=== PATIENT | male | born 1960 | race African-American/Black ===

== ENCOUNTER 2017-07-30 09:32 | Emergency (ER) | payer MEDICARE, OTHER ==
[2017-07-30] MEDS: IV NORMAL SALINE 1000ML BAG 1,000 ML IV (10:46)
[2017-07-30 10:55] LABS: ADD MAN DIFF? NO
[2017-07-30] MEDS: ONDANSETRON PF 4 MG/2 ML VIAL. IV (11:00)
[2017-07-30 11:02] LABS: BASO # 0.1 x10^3/uL (0.0-0.2); BASO % 1 % (0-3); EOS # 0.2 x10^3/uL (0.0-0.7); EOS % 3 % (0-3); HEMATOCRIT 48.2 % (39.0-53.0); HEMOGLOBIN 16.8 g/dL (13.0-17.5); LYMPH # 2.7 x10^3/uL (1.0-4.8); LYMPH % 32 % (24-48); MEAN CORPUSCULAR HEMOGLOBIN 31 pg (25-35); MEAN CORPUSCULAR HGB CONC 35 g/dL (31-37); MEAN CORPUSCULAR VOLUME 90 fL (79-100); MONO # 0.6 x10^3/uL (0.0-1.1); MONO % 8 % (0-9); NEUT # 4.8 x10^3uL (1.8-7.7); NEUT % 57 % (31-73); PLATELET COUNT 343 x10^3/uL (140-400); RED BLOOD COUNT 5.38 x10^6/uL (4.30-5.70); RED CELL DISTRIBUTION WIDTH 14.9 % (11.5-14.5); WHITE BLOOD COUNT 8.4 x10^3/uL (4.0-11.0)
[2017-07-30 11:04] LABS: BILIRUBIN,URINE NEGATIVE (NEG); CLARITY,URINE CLEAR; COLOR,URINE YELLOW; GLUCOSE,URINE NEGATIVE (NEG); NITRITE,URINE NEGATIVE (NEG); PROTEIN,URINE NEGATIVE (NEG-TRACE); UROBILINOGEN,URINE 0.2 mg/dL (0.2 mg/dL)
[2017-07-30 11:16] LABS: BACTERIA,URINE 0 /HPF (0-FEW); RBC,URINE 0 /HPF (0-2); SQUAMOUS EPITHELIAL CELL,UR OCC /LPF; WBC,URINE 0 /HPF (0-4)
[2017-07-30 11:28] LABS: ANION GAP 8 (6-14); BLOOD UREA NITROGEN 9 mg/dL (8-26); BUN/CREATININE RATIO 11 (6-20); CALCIUM 9.8 mg/dL (8.5-10.1); CARBON DIOXIDE 30 mmol/L (21-32); CHLORIDE 102 mmol/L (98-107); CREATININE 0.8 mg/dL (0.7-1.3); GFR 119.7; GLUCOSE 100 mg/dL (70-99); POTASSIUM 4.5 mmol/L (3.5-5.1); SODIUM 140 mmol/L (136-145)
[2017-07-30 11:34] LABS: ALBUMIN 4.2 g/dL (3.4-5.0); ALBUMIN/GLOBULIN RATIO 1.1 (1.0-1.7); ALK PHOS 122 U/L (46-116); ALT (SGPT) 25 U/L (16-63); AST (SGOT) 16 U/L (15-37); LIPASE 120 U/L (73-393); TOTAL BILIRUBIN 0.4 mg/dL (0.2-1.0); TOTAL PROTEIN 8.1 g/dL (6.4-8.2)
[2017-07-30] MEDS ORDERED: CONTRAST GIVEN MC (11:45)
[2017-07-30] MEDS: IOHEXOL 300 MG/ML 100ML VIAL. IV (11:48)
== END 2017-07-30 12:41 | disposition home or self-care (01) ==
LOC: ER 09:32
DX: K40.90 Unilateral inguinal hernia, without obstruction or gangrene, not specified as recurrent (principal); R10.30 Lower abdominal pain, unspecified; R11.2 Nausea with vomiting, unspecified
CPT/HCPCS: 36415; 74177; 80053; 81001; 83690; 85025; 96361; 96374; 99285-25; J2405; J7030; Q9967

== ENCOUNTER 2020-04-26 15:09 | Emergency (ER) | payer OTHER ==
[2017-07-30 10:50] VITALS: BP 146/86
[~2020-04-26 15:09] MED LIST: ACET325T9 PO; MULT-208 PO; SCHIZOPHRENIA MED
[2020-04-26 16:48] LABS: BILIRUBIN,URINE NEGATIVE (NEG); CLARITY,URINE CLEAR; COLOR,URINE YELLOW; NITRITE,URINE NEGATIVE (NEG); PROTEIN,URINE NEGATIVE (NEG-TRACE)
[2020-04-26 16:49] LABS: BASO % 0 % (0-3); EOS # 0.2 x10^3/uL (0.0-0.7); EOS % 2 % (0-3); HEMATOCRIT 44.3 % (39.0-53.0); HEMOGLOBIN 15.1 g/dL (13.0-17.5); LYMPH # 1.6 x10^3/uL (1.0-4.8); LYMPH % 17 % (24-48); MEAN CORPUSCULAR HEMOGLOBIN 31 pg (25-35); MEAN CORPUSCULAR HGB CONC 34 g/dL (31-37); MEAN CORPUSCULAR VOLUME 90 fL (79-100); MONO # 0.8 x10^3/uL (0.0-1.1); MONO % 8 % (0-9); NEUT % 73 % (31-73); PLATELET COUNT 350 x10^3/uL (140-400); RED BLOOD COUNT 4.95 x10^6/uL (4.30-5.70); RED CELL DISTRIBUTION WIDTH 15.7 % (11.5-14.5); WHITE BLOOD COUNT 9.6 x10^3/uL (4.0-11.0)
[2020-04-26 16:57] LABS: AMPHETAMINE/METHAMPHETAMINE NEG (NEG); BARBITURATES NEG (NEG); BENZODIAZEPINES NEG (NEG); CALCIUM 9.5 mg/dL (8.5-10.1); CANNABINOIDS NEG (NEG); COCAINE NEG (NEG); CREATININE 0.8 mg/dL (0.7-1.3); GFR 118.9; METHADONE NEG (NEG); OPIATES NEG (NEG); PHENCYCLIDINE NEG (NEG); POTASSIUM 3.7 mmol/L (3.5-5.1)
[2020-04-26] MEDS ORDERED: IOHEXOL 300 MG/ML 100ML VIAL. IV ONE (17:00)
[2020-04-26] MEDS ORDERED: IOHEXOL 240 MG/ML 50ML VIAL. PO ONE (17:00)
[2020-04-26 17:02] LABS: ALBUMIN 3.4 g/dL (3.4-5.0); ALBUMIN/GLOBULIN RATIO 0.8 (1.0-1.7); TOTAL BILIRUBIN 0.2 mg/dL (0.2-1.0); TOTAL PROTEIN 7.7 g/dL (6.4-8.2)
[2020-04-26] MEDS ORDERED: CONTRAST GIVEN. MC PRN (17:15)
[2020-04-26 17:16] LABS: BACTERIA,URINE 0 /HPF (0-FEW); WBC,URINE OCC /HPF (0-4)
[2020-04-26 17:17] LABS: AMORPHOUS SEDIMENT,UR PRESENT /HPF
--- NOTE | 2020-04-26 18:28 | RAD ---
Exam: CT abdomen/pelvis with intravenous contrast Indication: Right inguinal hernia Comparison: CT abdomen pelvis 07/30/2017 Technique: Helical CT imaging performed of the abdomen and pelvis after the intravenous administratio n of 75 mL Omnipaque 300 intravenous contrast. Sagittal and coronal reformats were obtained. One or more of the following individualized dose reduction techniques were utilized for this examinat ion: 1. Automated exposure control 2. Adjustment of the mA and/or kV according to patient size 3. Use of iterative reconstruction technique. Findings: Lower chest: There is a pleural-based calcification and linear subpleural opacities or pleural thicke jennyfer in the lingula. The heart is normal in size. Liver: Normal. Gallbladder/Biliary Tree: Normal. Pancreas: Normal. Spleen: No splenomegaly. There are calcified splenic granulomas. Adrenal Glands: Normal. Kidneys/Ureters/Bladder: Kidneys are normal in size and enhance symmetrically. No hydronephrosis. The re are subcentimeter hypodensities in the left kidney, too small to characterize. Ureters and bladder are normal. Reproductive Organs: Normal. Stomach, small bowel, and colon: Stomach is normal. There is no small bowel obstruction. The cecum ex tends into a right inguinal hernia however there is no wall thickening or fluid in the hernia sac to suggest complication. The colon is otherwise normal. The appendix is normal. Vasculature: Abdominal aorta is normal in caliber. Lymph Nodes: No lymphadenopathy. Peritoneum and retroperitoneum: There is no free fluid or free air. Bones: No acute osseous abnormality. There is degenerative disc disease in the lumbar spine with smal l disc bulges at multiple levels. Miscellaneous: Slightly increased size of right inguinal hernia containing part of the cecum, as abov e. Impression: 1. Slightly increased size of right inguinal hernia containing part of the cecum. There is no wall t hickening or inflammation to suggest complication. 2. Pleural calcifications and adjacent linear subpleural opacities or pleural thickening in the ling sonny, nonspecific. This was partially seen on 07/30/2017. Electronically signed by: Chelita Saravia MD (04/26/2020 6:26 PM) [id number]
== END 2020-04-26 19:50 | disposition home or self-care (01) ==
LOC: ER 15:09
DX: K40.90 Unilateral inguinal hernia, without obstruction or gangrene, not specified as recurrent (principal); F20.9 Schizophrenia, unspecified
CPT/HCPCS: 36415; 74177; 80053; 80307; 81001; 85025; 99285; Q9966; Q9967

== ENCOUNTER → 2020-05-24 | Outpatient (CLI) | payer OTHER ==
[2017-07-30 10:50] VITALS: BP 146/86
[~2020-05-24] MED LIST changes: +TRIH2TAB3 PO; +[UNRECOGNIZED DRUG - OTHER]
== END ==
LOC: LAB 09:44
PROVIDERS: ATTEND Surgery
DX: Z01.812 Encounter for preprocedural laboratory examination (principal); K40.90 Unilateral inguinal hernia, without obstruction or gangrene, not specified as recurrent; Z20.822 Contact with and (suspected) exposure to COVID-19
CPT/HCPCS: U0003

== ENCOUNTER 2020-05-27 08:10 | Day surgery (SDC) | payer OTHER ==
[~2020-05-27] VITALS: Ht 170.2 cm; Wt 60.0 kg
[~2020-05-27 08:10] MED LIST changes: +ACETAMINOPHEN 500 MG TABLET PO PRN; +BUPIVACAINE-EPI 0.25% 30 ML VIAL KIT. ONE; +DEXAMETHASONE SOD PHOS 4 MG/ML VIAL ONE; +HYDROmorphone 2 MG/ML VIAL IVP PRN; +IV RINGERS,LACTATED 1000ML 1,000 ML IV SCH; +KETOROLAC 30 MG/ML VIAL. ONE; +LIDOCAINE 2% PF 5 ML VIAL. ONE; +MINERAL OIL for SURGERY 10 ML VIAL. MC ONE; +MORPHINE SULFATE 2 MG/ML VIAL. IVP PRN; +ONDANSETRON PF 4 MG/2 ML VIAL. ONE; +PROCHLORPERAZINE 10 MG/2 ML VIAL. IVP PRN; +PROPOFOL 10 MG/ML (20ML) VIAL. IV ONE; +ROCURONIUM 50 MG/5 ML VIAL. ONE; +SEVOFLURANE 61 TO 120 MINUTES. IH ONE; +ceFAZolin SODIUM IV Push 1 GM VIAL. IVP PRN; +fentaNYL PF VIAL 100 MCG/2 ML VIAL IVP PRN; +fentaNYL PF VIAL 100 MCG/2 ML VIAL ONE
[2020-05-27] MEDS ORDERED: NEOSTIGMINE METHYLSULFATE 5 MG/5 ML SYRINGE. ONE (09:40)
[2020-05-27] MEDS ORDERED: GLYCOPYRROLATE 1 MG/5 ML VIAL. ONE (09:40)
--- NOTE | 2020-05-27 09:53 | PDOC4 ---
Operative Note Operative Note Date: May 272020 at 951 Preoperative diagnosis: Right inguinal hernia Postoperative diagnosis: Same Procedure: Robotic assisted laparoscopic right inguinal hernia repair with mesh Surgeon: [place] Specimen: None Dictation: Patient is a 59-year-old male with a right inguinal hernia. The procedure of robotic assisted laparoscopic right inguinal hernia repair with mesh was explained to the patient detail risk benefits were also discussed inclu ding bleeding infection injury to intra-abdominal contents possible necessitating further open operations alternatives to this procedure also discussed with the patient who seemed to understand and gave both verbal and written consent to have the procedure performed. Patient was taken to the operating room placed in the supine position general anesthesia was initiated once patient was sleeping intubated he is placed in low lithotomy positioning and his abdomen was prepped and draped usual sterile fashion using ChloraPrep. Area just above the umbilicus was injected with quarter percent Marcaine with epinephrine incision was made with 11 blade scalpel and a varies needle was placed within the abdomen creating pneumoperitoneum once this was complete 8 mm ventral port was placed in the da Darian camera was placed within the abdomen which was inspected as noted patient to have a large direct right inguinal hernia. 8 mm ventral port was placed in the right midabdomen and an 8 mm da Darian port was placed in the left midabdomen the da Darian robot was brought and docked all port sites surgeon went to the robotic console using a grasper and E ndo Valerio scissors the peritoneum over the right groin area was incised the peritoneum was propagated inferiorly reducing the hernia sac. A large 3D max Bard mesh for the right side was placed over the hernia defect using 3-0 Vicryl the the mesh was tacked to the Soham's ligament and superiorly to the muscular wall. The peritoneum was then closed over the mesh with a running 2 OV lock absorbable suture. Sutures were removed from the abdomen the da Darian robot was undocked from all port sites pneumoperitoneum was reduced all ports were removed the port sites were all closed with 4 subcuticular Monocryl Mastisol Steri- Strips and island dressings were applied. Patient was awakened and extubated in the operating room taken to recovery in stable condition all sponge instrument needle counts listed as correct estimated blood loss 5 mL. NICA MASSEY MD May 27, 2020 09:53
--- NOTE | 2020-05-27 09:55 | DISCH ---
DISCHARGE INSTRUCTIONS Condition on Discharge Condition on Discharge: Stable Activity After Discharge Activity Instructions for Disc: Avoid exertion Other activity instructions: No lifting more than 20 pounds for 2 weeks Diet after Discharge Diet after Discharge: Regular Wound Incision Care Other wound/incision instructi: May shower in 24 hours Contacting the DRGladys after DC Call your doctor for: If your condition worsens Follow-Up Follow up with: Dr. Massey in 2 weeks NICA MASSEY MD May 27, 2020 09:55
[2020-05-27] MEDS ORDERED: fentaNYL PF VIAL 100 MCG/2 ML VIAL ONE (10:08)
[2020-05-27] MEDS: fentaNYL PF VIAL 100 MCG/2 ML VIAL IVP PRN ×2 (10:10→10:16)
[2020-05-27] MEDS ORDERED: OXYC-325 PO (10:22)
[2020-05-27] MEDS ORDERED: oxyCODONE/APAP 5/325 1 TAB TABLET PO ONE ×2 (10:30)
[2020-05-27 12:30] VITALS: BP 160/84
== END 2020-05-27 12:35 | disposition home or self-care (01) ==
LOC: SURG 08:10
PROVIDERS: ATTEND Surgery
DX: K40.90 Unilateral inguinal hernia, without obstruction or gangrene, not specified as recurrent (principal); Z98.890 Other specified postprocedural states; Z79.899 Other long term (current) drug therapy
CPT/HCPCS: 49650; A4364; A4930; A6219; C1781; J0690; J1100; J1885; J2405; J2704; J2710; J3010; J3490; S2900; A4657

== ENCOUNTER 2020-09-02 13:39 | Emergency (ER) | payer OTHER ==
[~2020-09-02] VITALS: Ht 170.2 cm; Wt 60.0 kg
[~2020-09-02 13:39] MED LIST changes: -ACETAMINOPHEN 500 MG TABLET PO PRN; -BUPIVACAINE-EPI 0.25% 30 ML VIAL KIT. ONE; -DEXAMETHASONE SOD PHOS 4 MG/ML VIAL ONE; -HYDROmorphone 2 MG/ML VIAL IVP PRN; -IV RINGERS,LACTATED 1000ML 1,000 ML IV SCH; -KETOROLAC 30 MG/ML VIAL. ONE; -LIDOCAINE 2% PF 5 ML VIAL. ONE; -MINERAL OIL for SURGERY 10 ML VIAL. MC ONE; -MORPHINE SULFATE 2 MG/ML VIAL. IVP PRN; -ONDANSETRON PF 4 MG/2 ML VIAL. ONE; +OXYC-325 PO; -PROCHLORPERAZINE 10 MG/2 ML VIAL. IVP PRN; -PROPOFOL 10 MG/ML (20ML) VIAL. IV ONE; -ROCURONIUM 50 MG/5 ML VIAL. ONE; -SEVOFLURANE 61 TO 120 MINUTES. IH ONE; -ceFAZolin SODIUM IV Push 1 GM VIAL. IVP PRN; -fentaNYL PF VIAL 100 MCG/2 ML VIAL IVP PRN; -fentaNYL PF VIAL 100 MCG/2 ML VIAL ONE
[2020-09-02 15:38] VITALS: BP 137/81
[2020-09-02] MEDS ORDERED: CLOB15CR TP (16:14)
--- NOTE | 2020-09-02 16:14 | ED.ADGEN ---
Past Medical History Past Medical History: No Pertinent History Past Surgical History: Other Additional Past Surgical Histo: HERNIA SURGERY Smoking Status: Never Smoker Alcohol Use: None Drug Use: None General Adult EDM: Chief Complaint: SKIN RASH/ABSCESS HPI: HPI: Patient is a 60 year old AA male who presents the emergency department with complaints of a dark tarry rash to all 4 of his extremities since April. Patient reports his primary care doctor, Dr. Conrad has prescribed him both oral and topical antifungals with no improvement in his rash. Patient states that the rash is very itchy. He denies any drainage, warmth, or bleeding from the rash. Patient denies any fever, cough, sore throat, abdominal pain, nausea, vomiting, diarrhea, shortness of breath, wheezing, chest pain, body aches, or fatigue. He currently denies any pain. Review of Systems: Review of Systems: Complete ROS is negative unless otherwise noted in HPI. Allergies: Allergies: Allergies Coded Allergies Type Severity Reaction Last Updated Verified No Known Allergies Allergy Unknown 09/28/14 Yes Physical Exam: PE: See Above Constitutional: Well developed, well nourished, no acute distress, non-toxic appearance. [] HENT: Normocephalic, atraumatic, bilateral external ears normal, nose normal. [] Eyes: PERRLA, EOMI, conjunctiva normal, no discharge. [] Neck: Normal range of motion, no stridor. [] Cardiovascular:Heart rate regular rhythm Lungs & Thorax: Respirations even and unlabored, no retractions, no respiratory distress Skin: Warm, dry, no erythema; generally dry skin noted, patches of scaly darkened skin concerning for atopic dermatitis to extremities x4 Extremities: No cyanosis, ROM intact, no edema. [] Neurologic: Alert and oriented X 3, normal motor, normal sensory, no focal deficits noted. [] Psychologic: Affect normal, judgement normal, mood normal. [] Current Patient Data: Vital Signs: Vital Signs Date Time Temp Pulse Resp B/P (MAP) Pulse Ox O2 Delivery O2 Flow Rate FiO2 09/02/20 15:38 98.1 67 18 137/81 (99) Room Air 98.1 EKG: EKG: [] Heart Score: C/O Chest Pain: No Risk Scores: Score 0 - 3: 2.5% MACE over next 6 weeks - Discharge Home Score 4 - 6: 20.3% MACE over next 6 weeks - Admit for Clinical Observation Score 7 - 10: 72.7% MACE over next 6 weeks - Early Invasive Strategies Radiology/Procedures: Radiology/Procedures: [] Course & Med Decision Making: Course & Med Decision Making Pertinent Labs and Imaging studies reviewed. (See chart for details) [] Dragon Disclaimer: Dragon Disclaimer: This electronic medical record was generated, in whole or in part, using a voice recognition dictation system. Departure Departure Impression: Primary Impression: Atopic dermatitis Disposition: HOME / SELF CARE / HOMELESS Condition: STABLE Referrals: YENNIFER CONRAD MD (PCP) Patient Instructions: Eczema Additional Instructions: Fill prescription(s) and use as directed. Apply moisturizing cream such as Cetaphil cream to your skin twice daily and as needed. Try to limit showers to every other day, take lukewarm/cool showers, and lightly towel dry as instructed. Follow-up with your primary care doctor or a audiovisual tech for repeat evaluation in the next week. Return to the ER if symptoms worsen or fever develops. Dr. Elizabeth Mart (Dermatology) [address] [place] [id number] Scripts Clobetasol Propionate (CLOBETASOL PROPIONATE) 15 Gm Cream..g. 1 DARIAN TP BID, #30 GM 0 Refills Prov: VICK SERRANO APRN 09/02/20 Attending Signature Attending Signature I have reviewed the PA/DIRECTOR OF PEOPLE's note and plan of care. I was available for consultation as needed during the patient's visit in the emergency department. I agree with the clinical impression, plan, and disposition. Problem Qualifiers Primary Impression: Atopic dermatitis Atopic dermatitis type: unspecified Qualified Codes: L20.9 - Atopic dermatitis, unspecified VICK SERRANO APRN Sep 02, 2020 16:14 [place] GABRIEL DO Sep 05, 2020 13:03
== END 2020-09-02 16:59 | disposition home or self-care (01) ==
LOC: ER 13:39
DX: L20.9 Atopic dermatitis, unspecified (principal)
CPT/HCPCS: 99283

== ENCOUNTER 2020-10-28 15:22 | Observation (INO) | payer OTHER ==
[~2020-10-28] VITALS: Ht 170.2 cm; Wt 48.2 kg
[~2020-10-28 15:22] MED LIST changes: +CLOB15CR TP
[2020-10-28 15:50] LABS: BASO # 0.1 x10^3/uL (0.0-0.2); BASO % 1 % (0-3); EOS # 0.2 x10^3/uL (0.0-0.7); EOS % 3 % (0-3); HEMATOCRIT 44.6 % (39.0-53.0); HEMOGLOBIN 15.3 g/dL (13.0-17.5); LYMPH # 1.7 x10^3/uL (1.0-4.8); LYMPH % 31 % (24-48); MEAN CORPUSCULAR HEMOGLOBIN 30 pg (25-35); MEAN CORPUSCULAR HGB CONC 34 g/dL (31-37); MEAN CORPUSCULAR VOLUME 87 fL (79-100); MONO # 0.6 x10^3/uL (0.0-1.1); MONO % 12 % (0-9); NEUT % 53 % (31-73); PLATELET COUNT 300 x10^3/uL (140-400); RED BLOOD COUNT 5.11 x10^6/uL (4.30-5.70); RED CELL DISTRIBUTION WIDTH 16.2 % (11.5-14.5); WHITE BLOOD COUNT 5.6 x10^3/uL (4.0-11.0)
--- NOTE | 2020-10-28 15:59 | RAD ---
EXAM: CT Head without IV contrast CLINICAL HISTORY: Reason: SLURRED SPEECH, last time known normal was 6 pm on 10/27/20 / [facility]. Instructi ons: / History: COMPARISON: None. TECHNIQUE: Routine CT of the head without contrast. PQRS compliance statement - One or more of the following individualized dose reduction techniques wer e utilized for this study: 1. Automated exposure control 2. Adjustment of the mA and/or kV according to patient size 3. Use of iterative reconstruction technique FINDINGS: There is no evidence of hemorrhage, mass or extra-axial fluid collection. Vazquez-white differentiation is maintained with no evidence of edema. There is no mass effect or shift of the intracranial structures. The ventricles, basilar cisterns and cortical sulci are normal in size and configuration for the pam ents stated age. The cerebellum and brainstem are unremarkable. The calvarium demonstrates no evidence of fracture or focal lesion. There is normal aeration of the visualized paranasal sinuses and mastoid air cells. The visualized portions of the orbits are normal. Atherosclerotic calcifications of the intracranial internal carotid and vertebral arteries is seen. IMPRESSION: No evidence for acute intracranial process. Specifically no evidence for acute intracranial hemorrhag e. White matter changes, likely chronic small vessel disease. Findings discussed with Dr. Iniguez at 10/28/2020 3:56 PM. FOR INTERNAL CODING PURPOSES RESULT CODE: (C) Electronically signed by: Paulo Dhillon MD (10/28/2020 3:57 PM) [id number]
[2020-10-28 16:00] LABS: CALCIUM 9.3 mg/dL (8.5-10.1); CREATININE 0.9 mg/dL (0.7-1.3); GFR 103.5; POTASSIUM 4.4 mmol/L (3.5-5.1)
--- NOTE | 2020-10-28 16:03 | PHYS DOC ---
Past Medical History Past Medical History: Schizophrenia Past Surgical History: Other Additional Past Surgical Histo: hernia repait Smoking Status: Current Every Day Smoker Alcohol Use: None Drug Use: None General Adult EDM: Chief Complaint: SLURRED SPEECH HPI: HPI: Patient is a 60-year-old male who was brought here by his caregiver for concern of slurred speech. Last time they talked with him and his speech was normal was at 6 PM yesterday. Patient has history of schizophrenia, he is on multiple psych medications. Patient denies any headache, no nausea vomiting, no chest pain, no cough, no fever. Patient denies any numbness or weakness anywhere. Patient said he felt like the medication makes him talked slurred. Review of Systems: Review of Systems: Constitutional: Denies fever or chills. [] Eyes: Denies change in visual acuity. [] HENT: Denies nasal congestion or sore throat. [] Respiratory: Denies cough or shortness of breath. [] Cardiovascular: Denies chest pain or edema. [] GI: Denies abdominal pain, nausea, vomiting, bloody stools or diarrhea. [] : Denies dysuria. [] Musculoskeletal: Denies back pain or joint pain. [] Integument: Denies rash. [] Neurologic: Denies headache, focal weakness or sensory changes. Positive for slurred speech Endocrine: Denies polyuria or polydipsia. [] Lymphatic: Denies swollen glands. [] Psychiatric: Denies depression or anxiety. [] Heart Score: C/O Chest Pain: N/A Risk Factors: Risk Factors: DM, Current or recent (<one month) smoker, HTN, HLP, family history of CAD, obesity. Risk Scores: Score 0 - 3: 2.5% MACE over next 6 weeks - Discharge Home Score 4 - 6: 20.3% MACE over next 6 weeks - Admit for Clinical Observation Score 7 - 10: 72.7% MACE over next 6 weeks - Early Invasive Strategies Allergies: Allergies: Allergies Coded Allergies Type Severity Reaction Last Updated Verified No Known Allergies Allergy Unknown 10/28/20 Yes Physical Exam: PE: Constitutional: Well developed, well nourished, no acute distress, non-toxic appearance. [] HENT: Normocephalic, atraumatic, bilateral external ears normal, oropharynx moist, no oral exudates, nose normal. [] Eyes: PERRLA, EOMI, conjunctiva normal, no discharge. [] Neck: Normal range of motion, no tenderness, supple, no stridor. [] Cardiovascular:Heart rate regular rhythm, no murmur [] Lungs & Thorax: Bilateral breath sounds clear to auscultation [] Abdomen: Bowel sounds normal, soft, no tenderness, no masses, no pulsatile masses. [] Skin: Warm, dry, no erythema, no rash. [] Back: No tenderness, no CVA tenderness. [] Extremities: No tenderness, no cyanosis, no clubbing, ROM intact, no edema. [] Neurologic: Alert and oriented X 3, normal motor function, normal sensory function, no focal deficits noted. [] Psychologic: Affect normal, judgement normal, mood normal. [] Current Patient Data: Labs: Laboratory Tests Test 10/28/20 15:38 10/28/20 15:43 Glucose (Fingerstick) 97 mg/dL (70-99) White Blood Count 5.6 x10^3/uL (4.0-11.0) Red Blood Count 5.11 x10^6/uL (4.30-5.70) Hemoglobin 15.3 g/dL (13.0-17.5) Hematocrit 44.6 % (39.0-53.0) Mean Corpuscular Volume 87 fL (79-100) Mean Corpuscular Hemoglobin 30 pg (25-35) Mean Corpuscular Hemoglobin Concent 34 g/dL (31-37) Red Cell Distribution Width 16.2 % (11.5-14.5) H Platelet Count 300 x10^3/uL (140-400) Neutrophils (%) (Auto) 53 % (31-73) Lymphocytes (%) (Auto) 31 % (24-48) Monocytes (%) (Auto) 12 % (0-9) H Eosinophils (%) (Auto) 3 % (0-3) Basophils (%) (Auto) 1 % (0-3) Neutrophils # (Auto) 3.0 x10^3/uL (1.8-7.7) Lymphocytes # (Auto) 1.7 x10^3/uL (1.0-4.8) Monocytes # (Auto) 0.6 x10^3/uL (0.0-1.1) Eosinophils # (Auto) 0.2 x10^3/uL (0.0-0.7) Basophils # (Auto) 0.1 x10^3/uL (0.0-0.2) Platelet Estimate Pending Sodium Level 135 mmol/L (136-145) L Potassium Level 4.4 mmol/L (3.5-5.1) Chloride Level 101 mmol/L (98-107) Carbon Dioxide Level 27 mmol/L (21-32) Anion Gap 7 (6-14) Blood Urea Nitrogen 9 mg/dL (8-26) Creatinine 0.9 mg/dL (0.7-1.3) Estimated GFR (Cockcroft-Gault) 103.5 BUN/Creatinine Ratio 10 (6-20) Glucose Level 93 mg/dL (70-99) Calcium Level 9.3 mg/dL (8.5-10.1) Magnesium Level Pending Total Bilirubin Pending Aspartate Amino Transferase (AST) Pending Alanine Aminotransferase (ALT) Pending Alkaline Phosphatase Pending Total Protein Pending Albumin Pending Albumin/Globulin Ratio Pending Laboratory Tests 10/28/20 15:43 Laboratory Tests 10/28/20 15:43 Vital Signs: Vital Signs Date Time Temp Pulse Resp B/P (MAP) Pulse Ox O2 Delivery O2 Flow Rate FiO2 10/28/20 15:33 98.5 77 171/80 100 98.5 EKG: EKG: EKG was done at 1601, heart rate 64 bpm, sinus rhythm, no ST segment elevation. Normal EKG. Radiology/Procedures: Radiology/Procedures: [][facility] [address] [place], [place] [id number] IMAGING REPORT Signed PATIENT: MILO RICHARDS MACCOUNT: [id number] : 1960 LOCATION: ER AGE: 60 SEX: M EXAM STATUS: PRE ER ORD. PHYSICIAN: AURORA SPENCE DO REASON: SLURRED SPEECH, last time known normal was 6 pm on 10/27/20 PROCEDURE: CT CODE STROKE HEAD WO EXAM: CT Head without IV contrast CLINICAL HISTORY: Reason: SLURRED SPEECH, last time known normal was 6 pm on 10/27/20 / [facility]. Instructions: / History: COMPARISON: None. TECHNIQUE: Routine CT of the head without contrast. PQRS compliance statement - One or more of the following individualized dose reduction techniques were utilized for this study: 1. Automated exposure control 2. Adjustment of the mA and/or kV according to patient size 3. Use of iterative reconstruction technique FINDINGS: There is no evidence of hemorrhage, mass or extra-axial fluid collection. Vazquez-white differentiation is maintained with no evidence of edema. There is no mass effect or shift of the intracranial structures. The ventricles, basilar cisterns and cortical sulci are normal in size and configuration for the patients stated age. The cerebellum and brainstem are unremarkable. The calvarium demonstrates no evidence of fracture or focal lesion. There is normal aeration of the visualized paranasal sinuses and mastoid air cells. The visualized portions of the orbits are normal. Atherosclerotic calcifications of the intracranial internal carotid and vertebral arteries is seen. IMPRESSION: No evidence for acute intracranial process. Specifically no evidence for acute intracranial hemorrhage. White matter changes, likely chronic small vessel disease. Findings discussed with Dr. Spence at 10/28/2020 3:56 PM. FOR INTERNAL CODING PURPOSES RESULT CODE: (C) Electronically signed by: Paulo Foley MD (10/28/2020 3:57 PM) [id number] DICTATED and SIGNED BY: PAULO FOLEY MD DATE: 10/28/20 [id number] 0 Course & Med Decision Making: Course & Med Decision Making Pertinent Labs and Imaging studies reviewed. (See chart for details) Patient is a 60-year-old male who was brought here by his caregiver for concern of slurred speech. Last time they talked with him and his speech was normal was at 6 PM yesterday. Patient has schizophrenia, he is on several medications for it. His NIH stroke scale is 1 due to slurred speech. CT scan head is normal. Discussed with the neurologist on-call Dr. Carmine Villaseñor at 4 PM who suspect that patient has some form of dystonic reaction from the medication. Recommended no need for CTA head and neck, no IV TPA because of the time, recommended to admit the patient to the hospital for MRI of his brain. Discussed with patient's PCP , Dr. Conrad who agreed to admit patient. Tiffany Disclaimer: Tiffany Disclaimer: This electronic medical record was generated, in whole or in part, using a voice recognition dictation system. Departure Departure Impression: Primary Impression: Slurred speech Disposition: ADMITTED INPATIENT Admitting Physician: Niecy Conrad Condition: STABLE Referrals: NIECY CONRAD MD (PCP) AURORA SPENCE DO Oct 28, 2020 16:03
[2020-10-28 16:04] LABS: PROTHROMBIN TIME PATIENT 12.5 SEC (11.7-14.0)
[2020-10-28 16:06] LABS: ALBUMIN 3.7 g/dL (3.4-5.0); ALBUMIN/GLOBULIN RATIO 0.9 (1.0-1.7); MAGNESIUM 1.9 mg/dL (1.8-2.4); TOTAL BILIRUBIN 0.4 mg/dL (0.2-1.0); TOTAL PROTEIN 7.6 g/dL (6.4-8.2)
[2020-10-28 16:15] LABS: % BASOS 2 % (0-3); % EOS 4 % (0-5); % LYMPHS 29 % (24-48); % MONOS 12 % (0-10); % SEGS 53 % (35-66); PLT ESTIMATE ADEQUATE (ADEQUATE)
[2020-10-28] MEDS ORDERED: BENZTROPINE MESYLATE 2 MG/2 ML VIAL. IM STA (16:39)
[2020-10-28 19:08] LABS: BARBITURATES NEG (NEG); BENZODIAZEPINES NEG (NEG); CANNABINOIDS NEG (NEG); COCAINE NEG (NEG); METHADONE NEG (NEG); OPIATES NEG (NEG); PHENCYCLIDINE NEG (NEG)
[2020-10-28 19:20] LABS: AMPHETAMINE/METHAMPHETAMINE NEG (NEG)
--- NOTE | 2020-10-28 19:47 | EKG ---
[facility] [address] [place] [address] Test Date: 2020-10-28 Test Time: 15:59:33 Pat Name: MILO RICHARDS Department: Room: Gender: M Certified Real Estate Appraiser: : 1960 Requested By: AURORA SPENCE Order Number: [id number] Reading MD: Measurements Intervals [place] Rate: 64 P: 31 MT: 142 QRS: 63 QRSD: 80 T: 41 QT: 398 QTc: 415 Interpretive Statements SINUS RHYTHM NORMAL ECG RI6.02 No previous ECG available for comparison
--- NOTE | 2020-10-28 23:07 | RAD ---
AP chest x-ray HISTORY: Tobacco smoker, COPD FINDINGS: Heart size normal. Mediastinal silhouette is normal. Elongated coarse calcifications across the left perihilar lung and upper lobe likely represent calcified pleural plaques. No pneumothorax. No pleural effusions. At the right medial upper lobe apex there is a 2 cm somewhat linear scarlike de nsity. The bones are unremarkable. IMPRESSION: 1. No acute process. 2. Coarse calcifications across the left chest likely represent calcified pleural plaques and raises the possibility of asbestos related pleural disease. 3. 2 cm linear scarlike density at the right upper lobe apex. Further assessment with outpatient CT c hest imaging is advised. Electronically signed by: Tommie Yañez MD (10/28/2020 11:04 PM) [facility]
[2020-10-29 00:10] VITALS: BP 157/77
[2020-10-29 03:46] VITALS: BP 141/80
[2020-10-29 04:58] LABS: BASO # 0.1 x10^3/uL (0.0-0.2); BASO % 2 % (0-3); EOS # 0.1 x10^3/uL (0.0-0.7); EOS % 2 % (0-3); HEMATOCRIT 46.7 % (39.0-53.0); HEMOGLOBIN 16.1 g/dL (13.0-17.5); LYMPH # 1.6 x10^3/uL (1.0-4.8); LYMPH % 27 % (24-48); MEAN CORPUSCULAR HEMOGLOBIN 30 pg (25-35); MEAN CORPUSCULAR HGB CONC 35 g/dL (31-37); MEAN CORPUSCULAR VOLUME 88 fL (79-100); MONO # 0.6 x10^3/uL (0.0-1.1); MONO % 11 % (0-9); NEUT # 3.3 x10^3/uL (1.8-7.7); NEUT % 58 % (31-73); PLATELET COUNT 311 x10^3/uL (140-400); RED BLOOD COUNT 5.33 x10^6/uL (4.30-5.70); RED CELL DISTRIBUTION WIDTH 16.2 % (11.5-14.5); WHITE BLOOD COUNT 5.8 x10^3/uL (4.0-11.0)
[2020-10-29 05:24] LABS: CALCIUM 9.7 mg/dL (8.5-10.1); CREATININE 0.8 mg/dL (0.7-1.3); GFR 118.5; POTASSIUM 4.2 mmol/L (3.5-5.1)
[2020-10-29 06:44] VITALS: BP 141/59
--- NOTE | 2020-10-29 08:40 | PDOC2 ---
NEUROLOGY CONSULT Date of Service DOS: DATE: 10/29/20 TIME: 08:32 Reason for Consult Reason for Consult: Dysarthria Referring Physician Referring Physician: Dr. James Source Source: Chart review, Patient History of Present Illness History of Present Illness The patient is a 60-year-old right-handed male who has had dysarthria for the past week. Last known normal was 6 PM on 10/27. He has schizophrenia and is on multiple psychiatric medications. He describes his words being drawn out and difficult to get out. He denies diplopia, dysphagia, numbness, or weakness. He has never had a stroke, seizure, or head injury. Patient and family believe that the psychotropic medication is causing the dysarthria. Past Medical History GI: Other (Colonic polyps) Psych: Anxiety, Schizophrenia ENT: Other (Scar on right cornea) Renal/: Other (Urinary urgency) Past Surgical History Past Surgical History: Hernia Repair (Right inguinal), Other (Knee arthroscopy) Family History Family History: No pertinent hx Social History Social History Single, occasional cigarettes, no alcohol or street drugs, disabled Current Medications Current Medications Current Medications Benztropine Mesylate (Cogentin) 2 mg 1X STAT IM Last administered on 10/28/20at 16:50; Start 10/28/20 at 16:39; Stop 10/28/20 at 16:41; Status DC Active Scripts Active Clobetasol Propionate 15 Gm Cream..g. 1 Lit TP BID Reported Percocet 5-325 mg Tablet (Oxycodone HCl/Acetaminophen) 1 Each Tablet 1-2 Tab PO Q4-6HRS PRN MDD 2 Tablet(s) 5 Days [Prolixen] 1 UD Trihexyphenidyl Hcl 2 Mg Tablet 2 Mg PO BID Multi-Day Vitamins (Multivitamin) 1 Each Tablet 1 Tab PO DAILY Tylenol (Acetaminophen) 325 Mg Tablet 1 Tab PO DAILY Allergies Allergies: Coded Allergies: No Known Allergies (Verified Allergy, Unknown, 10/28/20) ROS Review of System Negative for fever, chills, weight loss, shortness of breath, chest pain, indigestion, hematochezia, melena, and dysuria. Full 14-point review of systems is negative. Physical Exam Physical Examination General: Well-developed, well-nourished black male in no acute distress HEENT: Normocephalic andatraumatic. Temporal arteriespulsatile and nontender. Neck: Supple without bruit, no meningismus Musculoskeletal: Stability:see neurologic. Gait exam:see neurologic. Tone:see neurologic.Strength:see neurologic. Neurological: Mental Status:orientation, memory, attention span/concentration, language, fund of knowledge: 1 day off on the date, denies delusions or hallucinations. He has at least eight watches or bracelets on his wrists. Cranial Nerves:Pupils equal and reactive to light, extraocular movements areintact, visual long are full to confrontation. Facial sensation is normal. There is no facial asymmetry. Vestibulo-ocular reflex is intact. Palate elevates and tongue protrudes in midline. All other cranial related problems are negative except as mentioned before.Reflexes:1+ and symmetric with flexor plantar responses. Motor:4/5 strength with normal tone and bulk. Coordination:Finger-nose finger and elpr-rh-rkft testing are normal. Rapid alternating movements and fine finger movements are intact. Slight coarse resting tremor in both hands. Gait:A little unsteady. Sensory:Normal pinprick, vibration, light touch, proprioception. Vitals VITALS Vital Signs Date Time Temp Pulse Resp B/P (MAP) Pulse Ox O2 Delivery O2 Flow Rate FiO2 10/29/20 06:44 97.9 54 16 141/59 (86) 99 Room Air 97.9 Labs Labs Laboratory Tests Test 10/28/20 15:38 10/28/20 15:43 10/28/20 18:51 10/28/20 18:56 Glucose (Fingerstick) 97 mg/dL (70-99) White Blood Count 5.6 x10^3/uL (4.0-11.0) Red Blood Count 5.11 x10^6/uL (4.30-5.70) Hemoglobin 15.3 g/dL (13.0-17.5) Hematocrit 44.6 % (39.0-53.0) Mean Corpuscular Volume 87 fL (79-100) Mean Corpuscular Hemoglobin 30 pg (25-35) Mean Corpuscular Hemoglobin Concent 34 g/dL (31-37) Red Cell Distribution Width 16.2 % (11.5-14.5) Platelet Count 300 x10^3/uL (140-400) Neutrophils (%) (Auto) 53 % (31-73) Lymphocytes (%) (Auto) 31 % (24-48) Monocytes (%) (Auto) 12 % (0-9) Eosinophils (%) (Auto) 3 % (0-3) Basophils (%) (Auto) 1 % (0-3) Neutrophils # (Auto) 3.0 x10^3/uL (1.8-7.7) Lymphocytes # (Auto) 1.7 x10^3/uL (1.0-4.8) Monocytes # (Auto) 0.6 x10^3/uL (0.0-1.1) Eosinophils # (Auto) 0.2 x10^3/uL (0.0-0.7) Basophils # (Auto) 0.1 x10^3/uL (0.0-0.2) Segmented Neutrophils % 53 % (35-66) Lymphocytes % 29 % (24-48) Monocytes % 12 % (0-10) Eosinophils % 4 % (0-5) Basophils % 2 % (0-3) Platelet Estimate Adequate (ADEQUATE) Prothrombin Time 12.5 SEC (11.7-14.0) Prothromb Time International Ratio 0.9 (0.8-1.1) Activated Partial Thromboplast Time 33 SEC (24-38) Sodium Level 135 mmol/L (136-145) Potassium Level 4.4 mmol/L (3.5-5.1) Chloride Level 101 mmol/L (98-107) Carbon Dioxide Level 27 mmol/L (21-32) Anion Gap 7 (6-14) Blood Urea Nitrogen 9 mg/dL (8-26) Creatinine 0.9 mg/dL (0.7-1.3) Estimated GFR (Cockcroft-Gault) 103.5 BUN/Creatinine Ratio 10 (6-20) Glucose Level 93 mg/dL (70-99) Calcium Level 9.3 mg/dL (8.5-10.1) Magnesium Level 1.9 mg/dL (1.8-2.4) Total Bilirubin 0.4 mg/dL (0.2-1.0) Aspartate Amino Transf (AST/SGOT) 20 U/L (15-37) Alanine Aminotransferase (ALT/SGPT) 24 U/L (16-63) Alkaline Phosphatase 99 U/L (46-116) Troponin I Quantitative < 0.017 ng/mL (0.000-0.055) Total Protein 7.6 g/dL (6.4-8.2) Albumin 3.7 g/dL (3.4-5.0) Albumin/Globulin Ratio 0.9 (1.0-1.7) Urine Opiates Screen Neg (NEG) Urine Methadone Screen Neg (NEG) Urine Barbiturates Neg (NEG) Urine Phencyclidine Screen Neg (NEG) Urine Amphetamine/Methamphetamine Neg (NEG) Urine Benzodiazepines Screen Neg (NEG) Urine Cocaine Screen Neg (NEG) Urine Cannabinoids Screen Neg (NEG) Urine Ethyl Alcohol Neg (NEG) SARS-CoV-2 Antigen (Rapid) Negative (NEGATIVE) Test 10/29/20 04:00 White Blood Count 5.8 x10^3/uL (4.0-11.0) Red Blood Count 5.33 x10^6/uL (4.30-5.70) Hemoglobin 16.1 g/dL (13.0-17.5) Hematocrit 46.7 % (39.0-53.0) Mean Corpuscular Volume 88 fL (79-100) Mean Corpuscular Hemoglobin 30 pg (25-35) Mean Corpuscular Hemoglobin Concent 35 g/dL (31-37) Red Cell Distribution Width 16.2 % (11.5-14.5) Platelet Count 311 x10^3/uL (140-400) Neutrophils (%) (Auto) 58 % (31-73) Lymphocytes (%) (Auto) 27 % (24-48) Monocytes (%) (Auto) 11 % (0-9) Eosinophils (%) (Auto) 2 % (0-3) Basophils (%) (Auto) 2 % (0-3) Neutrophils # (Auto) 3.3 x10^3/uL (1.8-7.7) Lymphocytes # (Auto) 1.6 x10^3/uL (1.0-4.8) Monocytes # (Auto) 0.6 x10^3/uL (0.0-1.1) Eosinophils # (Auto) 0.1 x10^3/uL (0.0-0.7) Basophils # (Auto) 0.1 x10^3/uL (0.0-0.2) Sodium Level 139 mmol/L (136-145) Potassium Level 4.2 mmol/L (3.5-5.1) Chloride Level 102 mmol/L (98-107) Carbon Dioxide Level 27 mmol/L (21-32) Anion Gap 10 (6-14) Blood Urea Nitrogen 10 mg/dL (8-26) Creatinine 0.8 mg/dL (0.7-1.3) Estimated GFR (Cockcroft-Gault) 118.5 Glucose Level 88 mg/dL (70-99) Calcium Level 9.7 mg/dL (8.5-10.1) Thyroid Stimulating Hormone (TSH) 0.869 uIU/mL (0.358-3.74) Laboratory Tests Test 10/28/20 15:38 10/28/20 15:43 10/28/20 18:51 10/28/20 18:56 Glucose (Fingerstick) 97 mg/dL (70-99) White Blood Count 5.6 x10^3/uL (4.0-11.0) Red Blood Count 5.11 x10^6/uL (4.30-5.70) Hemoglobin 15.3 g/dL (13.0-17.5) Hematocrit 44.6 % (39.0-53.0) Mean Corpuscular Volume 87 fL (79-100) Mean Corpuscular Hemoglobin 30 pg (25-35) Mean Corpuscular Hemoglobin Concent 34 g/dL (31-37) Red Cell Distribution Width 16.2 % (11.5-14.5) Platelet Count 300 x10^3/uL (140-400) Neutrophils (%) (Auto) 53 % (31-73) Lymphocytes (%) (Auto) 31 % (24-48) Monocytes (%) (Auto) 12 % (0-9) Eosinophils (%) (Auto) 3 % (0-3) Basophils (%) (Auto) 1 % (0-3) Neutrophils # (Auto) 3.0 x10^3/uL (1.8-7.7) Lymphocytes # (Auto) 1.7 x10^3/uL (1.0-4.8) Monocytes # (Auto) 0.6 x10^3/uL (0.0-1.1) Eosinophils # (Auto) 0.2 x10^3/uL (0.0-0.7) Basophils # (Auto) 0.1 x10^3/uL (0.0-0.2) Segmented Neutrophils % 53 % (35-66) Lymphocytes % 29 % (24-48) Monocytes % 12 % (0-10) Eosinophils % 4 % (0-5) Basophils % 2 % (0-3) Platelet Estimate Adequate (ADEQUATE) Prothrombin Time 12.5 SEC (11.7-14.0) Prothromb Time International Ratio 0.9 (0.8-1.1) Activated Partial Thromboplast Time 33 SEC (24-38) Sodium Level 135 mmol/L (136-145) Potassium Level 4.4 mmol/L (3.5-5.1) Chloride Level 101 mmol/L (98-107) Carbon Dioxide Level 27 mmol/L (21-32) Anion Gap 7 (6-14) Blood Urea Nitrogen 9 mg/dL (8-26) Creatinine 0.9 mg/dL (0.7-1.3) Estimated GFR (Cockcroft-Gault) 103.5 BUN/Creatinine Ratio 10 (6-20) Glucose Level 93 mg/dL (70-99) Calcium Level 9.3 mg/dL (8.5-10.1) Magnesium Level 1.9 mg/dL (1.8-2.4) Total Bilirubin 0.4 mg/dL (0.2-1.0) Aspartate Amino Transf (AST/SGOT) 20 U/L (15-37) Alanine Aminotransferase (ALT/SGPT) 24 U/L (16-63) Alkaline Phosphatase 99 U/L (46-116) Troponin I Quantitative < 0.017 ng/mL (0.000-0.055) Total Protein 7.6 g/dL (6.4-8.2) Albumin 3.7 g/dL (3.4-5.0) Albumin/Globulin Ratio 0.9 (1.0-1.7) Urine Opiates Screen Neg (NEG) Urine Methadone Screen Neg (NEG) Urine Barbiturates Neg (NEG) Urine Phencyclidine Screen Neg (NEG) Urine Amphetamine/Methamphetamine Neg (NEG) Urine Benzodiazepines Screen Neg (NEG) Urine Cocaine Screen Neg (NEG) Urine Cannabinoids Screen Neg (NEG) Urine Ethyl Alcohol Neg (NEG) SARS-CoV-2 Antigen (Rapid) Negative (NEGATIVE) Test 10/29/20 04:00 White Blood Count 5.8 x10^3/uL (4.0-11.0) Red Blood Count 5.33 x10^6/uL (4.30-5.70) Hemoglobin 16.1 g/dL (13.0-17.5) Hematocrit 46.7 % (39.0-53.0) Mean Corpuscular Volume 88 fL (79-100) Mean Corpuscular Hemoglobin 30 pg (25-35) Mean Corpuscular Hemoglobin Concent 35 g/dL (31-37) Red Cell Distribution Width 16.2 % (11.5-14.5) Platelet Count 311 x10^3/uL (140-400) Neutrophils (%) (Auto) 58 % (31-73) Lymphocytes (%) (Auto) 27 % (24-48) Monocytes (%) (Auto) 11 % (0-9) Eosinophils (%) (Auto) 2 % (0-3) Basophils (%) (Auto) 2 % (0-3) Neutrophils # (Auto) 3.3 x10^3/uL (1.8-7.7) Lymphocytes # (Auto) 1.6 x10^3/uL (1.0-4.8) Monocytes # (Auto) 0.6 x10^3/uL (0.0-1.1) Eosinophils # (Auto) 0.1 x10^3/uL (0.0-0.7) Basophils # (Auto) 0.1 x10^3/uL (0.0-0.2) Sodium Level 139 mmol/L (136-145) Potassium Level 4.2 mmol/L (3.5-5.1) Chloride Level 102 mmol/L (98-107) Carbon Dioxide Level 27 mmol/L (21-32) Anion Gap 10 (6-14) Blood Urea Nitrogen 10 mg/dL (8-26) Creatinine 0.8 mg/dL (0.7-1.3) Estimated GFR (Cockcroft-Gault) 118.5 Glucose Level 88 mg/dL (70-99) Calcium Level 9.7 mg/dL (8.5-10.1) Thyroid Stimulating Hormone (TSH) 0.869 uIU/mL (0.358-3.74) Images Images CT Head without IV contrast CLINICAL HISTORY: Reason: SLURRED SPEECH, last time known normal was 6 pm on 8/18/21 / Spl. Instructions: / History: COMPARISON: None. TECHNIQUE: Routine CT of the head without contrast. PQRS compliance statement - One or more of the following individualized dose reduction techniques were utilized for this study: 1. Automated exposure control 2. Adjustment of the mA and/or kV according to patient size 3. Use of iterative reconstruction technique FINDINGS: There is no evidence of hemorrhage, mass or extra-axial fluid collection. Vazquez-white differentiation is maintained with no evidence of edema. There is no mass effect or shift of the intracranial structures. The ventricles, basilar cisterns and cortical sulci are normal in size and configuration for the patients stated age. The cerebellum and brainstem are unremarkable. The calvarium demonstrates no evidence of fracture or focal lesion. There is normal aeration of the visualized paranasal sinuses and mastoid air cells. The visualized portions of the orbits are normal. Atherosclerotic calcifications of the intracranial internal carotid and vertebral arteries is seen. IMPRESSION: No evidence for acute intracranial process. Specifically no evidence for acute intracranial hemorrhage. White matter changes, likely chronic small vessel disease. Assessment/Plan Assessment/Plan Impression: New dysarthria most likely extrapyramidal effects from his psychiatric medication rather than a new stroke. Drug-induced Parkinson's Schizophrenia Recommendations: I see that he is on trihexyphenidyl, he would probably be better off with benztropine (Cogentin). However, I agree with holding all medications for now Speech therapy MRI of the brain Home later today if all these tests are negative. Thank you for letting me help with the patient's care. TERRANCE NUGENT MD Oct 29, 2020 08:40
[2020-10-29 09:12] LABS: BILIRUBIN,URINE SMALL (NEG); CLARITY,URINE CLEAR; COLOR,URINE YELLOW; NITRITE,URINE NEGATIVE (NEG); PH,URINE 5.5 (<5.0-8.0); PROTEIN,URINE NEGATIVE (NEG-TRACE); UROBILINOGEN,URINE 0.2 mg/dL (0.2 mg/dL)
--- NOTE | 2020-10-29 09:19 | PDOC ---
Provider Note Date of Service: DATE: 10/29/20 TIME: 09:19 Provider Note Pt seen .H&P to be dictated,#[id number]. spoke with neurology ,MRI brain today. CT scan and pul consult noted ,needs PET scan out pt. d/c home today Justifications for Admission Other Justification YENNIFER CONRAD MD Oct 29, 2020 09:19
[2020-10-29 10:08] LABS: BACTERIA,URINE 0 /HPF (0-FEW); RBC,URINE 0 /HPF (0-2); WBC,URINE 0 /HPF (0-4)
[2020-10-29 11:00] VITALS: BP 124/86
--- NOTE | 2020-10-29 11:20 | RAD ---
CT THORAX WO History: Lung mass, smoker Technique: CT of the chest was performed with intravenous contrast. Coronal and sagittal reconstructi ons were performed. Exposure: One or more of the following individualized dose reduction techniques were utilized for thi s examination: 1. Automated exposure control 2. Adjustment of the mA and/or kV according to patient size 3. Use of iterative reconstruction technique. Comparison: Chest radiograph from 10/28/2000 Findings: Chest: The visualized thyroid gland appears slightly prominent with a nodular contour with no discret e mass. Mild biapical pleural scarring. There is severe upper lobe predominant centrilobular emphysem atous changes. There is a spiculated scarlike subpleural nodule in the right upper lobe that measures up to 1.9 cm in maximal diameter. Reidentified pleural-based thickening with associated calcificatio ns involving the left anterior chest wall/lingula. There is associated likely cicatricial atelectasis of the lingula. There is also thickening of the left major fissure with no discrete nodularity. Scat tered punctate calcified bilateral granulomas. No pleural effusion. Major airways patent. Heart size normal. No pleural effusion. Moderate atherosclerotic calcifications of the coronary arter ies. The thoracic aorta and major branching vessels appear to be normal in course and caliber with sc attered atherosclerotic disease. No definite pathologic or mediastinal adenopathy on this noncontrast exam. Upper abdomen: Calcified granulomas within the otherwise unremarkable visualized liver and spleen. Pulido bcentimeter hypoattenuating foci within the left kidney, too small to characterize. Bones: No pathologic osseous lesions. Impression: 1.Right upper lobe subpleural spiculated 1.9 cm nodule. This may represent a focus of scarring, brownlee jade malignancy cannot be excluded. Further evaluation with tissue sampling may be considered. 2.Redemonstrate coarse calcifications along the left chest wall representing calcified pleural plaques with associated lingular cicatricial atelectasis. This may be posttraumatic versus sequela of asbestos related pleural disease. Continued attention on follow-up. 3. Nodular appearance of the otherwise unremarkable thyroid gland. Correlation with endocrine functio n Electronically signed by: Juan Manuel Zaman DO (10/29/2020 11:17 AM) [email or web address]
--- NOTE | 2020-10-29 11:29 | CONS ---
DATE OF CONSULTATION: 10/29/2020 PULMONARY CONSULTATION ATTENDING PHYSICIAN: Niecy James MD REASON FOR CONSULTATION: Abnormal chest x-ray. HISTORY OF PRESENT ILLNESS: The patient is a 60-year-old male who presented to the hospital with some slurred speech. The patient has history of schizophrenia and is on multiple psych medications. The patient underwent chest x-ray, which was reviewed by me. There was an abnormal opacity in the right upper lobe. The patient also has calcified pleural plaques in the left chest. CT chest has been ordered and done. I have reviewed the CT chest. There is an irregular parenchymal opacity in the right upper lobe. It has not been reported yet. The patient says he smoked only for 2 years. He denies any weight loss. No cough, no fever, no chills, no chest pain. PAST MEDICAL HISTORY: Anxiety and schizophrenia. SURGERIES: Hernia repair. FAMILY HISTORY: Noncontributory to lungs. SOCIAL HISTORY: Occasional tobacco use for 2 years. REVIEW OF SYSTEMS: As discussed in my present illness, otherwise noncontributory. PHYSICAL EXAMINATION: VITAL SIGNS: Reviewed. Pulse ox 99% on room air. NECK: Supple. LUNGS: Clear. CARDIOVASCULAR: With a regular rate. ABDOMEN: Soft. EXTREMITIES: With no pitting edema. LABORATORY DATA: Reviewed. BUN 10, creatinine 0.8. White cell count 5.8. IMPRESSION: 1. Abnormal chest x-ray and CT chest with irregular parenchymal opacity (1.9 cm) in the right upper lobe. Cannot exclude the possibility of early malignancy versus parenchymal scar. 2. Minimal history of tobacco use. 3. Underlying schizophrenia. 4. Dysarthria. RECOMMENDATIONS: 1. Discussed with RN and the patient. At this time, I would recommend PET scan as an outpatient. 2. Alternatively, a repeat CT chest to be performed in 2-3 months. 3. We can follow the patient post discharge. 4. Await official report of ct chest NOE LOCKE: Seajl TID: [id number] MTDD
--- NOTE | 2020-10-29 13:11 | RAD ---
MRI of the brain without contrast 10/29/2020 Clinical History: Dysarthria. Technique: Unenhanced T1-weighted sagittal and axial, T2-weighted axial and coronal and FLAIR, suscep tibility weighted and diffusion-weighted axial images of the brain were obtained. Findings: Comparison is made to patient's CT scan of the head dated 10/28/2020. There is generalized parenchymal atrophy. Patchy and several small scattered areas of increased signa l intensity are seen within the periventricular and subcortical white matter of both cerebral hemisph eres on the FLAIR and T2-weighted images consistent with areas of mild small vessel ischemic disease. No acute parenchymal abnormality is seen. No extra-axial fluid collection is noted. There is no MRI e vidence of acute ischemia/infarction. Very mild mucosal thickening is seen scattered throughout the paranasal sinuses. Normal flow voids ar e seen within the major vascular structures surrounding the brain parenchyma. IMPRESSION: No acute parenchymal abnormality is seen. Electronically signed by: Tc Russ MD (10/29/2020 1:09 PM) [id number]
--- NOTE | 2020-10-29 13:25 | NUR ---
SS following for discharge planning. SS reviewed pt chart and discussed with pt RN. Pt is from home and is currently on room air. PT/OT ordered. COVID19 negative. Discharge order on the chart for home with self care.
--- NOTE | 2020-10-29 14:53 | HP ---
ADMIT DATE: 10/29/2020 REASON FOR ADMISSION TO THE HOSPITAL: Very weak and also had problems with speech, possibility of stroke. HISTORY OF PRESENT ILLNESS: Mr. Dennis Escobar is a 60-year-old male with history of schizophrenia, sees a psychiatrist at [facility]. The patient has been not taking his medications and he has been withdrawn, not able to talk and there is a question that the patient could have a stroke. The patient was last seen 24 hours before, yesterday, and was brought to the hospital. CT was negative. His condition was improving, was admitted overnight for observation. PAST MEDICAL HISTORY: History of schizophrenia, anxiety. PAST SURGICAL HISTORY: Colon polyp, hernia repair right inguinal. FAMILY HISTORY: Unremarkable. SOCIAL HISTORY: Cigarette smoker. Denies any street drugs. MEDICATIONS: The patient is on Cogentin and Prolixin, tried Cinadil which he obtained, he gets this from [facility]. REVIEW OF SYSTEMS: The patient is speaking better now, back to his normal. No weakness noted. Denies any chest pain, shortness of breath. He is worried about his rash all over his body, which is kind of healed pigmented areas. PHYSICAL EXAMINATION: GENERAL: The patient is not in any distress, sitting in the chair. VITAL SIGNS: Temperature 98, pulse 77, respirations 20, blood pressure 170/80, 100% on room air. HEENT: Head is atraumatic. Pupils equal. Oral cavity, no congestion. NECK: Supple. Thyroid not enlarged. JVD not elevated. CHEST: Symmetrical. CARDIAC: S1, S2. Lungs are clear. ABDOMEN: Soft. No mass palpable. EXTERNAL GENITALIA: No Chavez. RECTAL: Deferred. EXTREMITIES: No calf tenderness. No edema.. SKIN: The patient has healed pigmented areas most of the parts of the body. NEUROLOGIC: The patient is walking. Cranial nerves intact. Power 5/5. Sensory grossly normal. LABORATORY DATA: Shows a white count of 5, hemoglobin 15, platelets 300. INR 0.9. Electrolytes show sodium 135, potassium 4.4, chloride 101, bicarbonate 27, anion gap 7, BUN 9, creatinine 0.9, glucose 93. LFTs normal. Thyroid was normal. Urine was negative for infection. Urine drug screen was negative. COVID test was negative. Had a CT head negative for acute stroke. Chest x-ray shows scarring in the right upper lung. Right apex could be a density. CT scan of the chest shows a subpleural spiculated 1.9 cm nodule right upper lobe could be a scarring, rule out malignancy. Calcifications along the left chest wall nodule in the thyroid. FINAL IMPRESSION: 1. Problems with speech as well as withdrawn, probably related to psychiatric problem. Does not look like any evidence of stroke. MRI was done, report is pending. 2. History of chronic schizophrenia, sees mental health at [facility]. 3. New right upper lung mass close to 2 cm spiculated suspicious for cancer. Recommend a pulmonary consult and also has a PET scan. Smoking counseling was done. 4. Chronic skin pigmentation probably related to psychiatric medicines. PLAN: At this time, was admitted to the hospital for overnight. Neurology consulted. Pulmonary consulted. CT scan of the chest done, report as above and probably could be discharged home. Follow up in the office. We will schedule a PET scan outpatient. YENNI/MIGUELINA DR: Shay TID: [id number]
== END 2020-10-29 16:30 | disposition home or self-care (01) ==
LOC: ER 15:22 → ED HOLD 16:59 → 6 SOUTH 23:32
PROVIDERS: ADMIT Internal Medicine; ATTEND Internal Medicine
DX: R47.1 Dysarthria and anarthria (principal); Z20.822 Contact with and (suspected) exposure to COVID-19; F41.9 Anxiety disorder, unspecified; F17.210 Nicotine dependence, cigarettes, uncomplicated; R93.89 Abnormal findings on diagnostic imaging of other specified body structures; G21.19 Other drug induced secondary parkinsonism; F20.9 Schizophrenia, unspecified; Z98.890 Other specified postprocedural states; Z87.19 Personal history of other diseases of the digestive system
CPT/HCPCS: 36415; 70450; 70551; 71045; 71250; 80048; 80053; 80307; 81001; 82962; 83735; 84443; 84484; 85007; 85025; 85610; 85730; 87426; 93005; 96372; 99285; G0378; J0515; U0003; U0005; G0379

== ENCOUNTER 2020-11-13 11:55 | Emergency (ER) | payer OTHER ==
[~2020-11-13] VITALS: Ht 177.8 cm; Wt 53.0 kg
[2020-11-13 12:45] LABS: BASO % 0 % (0-3); EOS # 0.1 x10^3/uL (0.0-0.7); EOS % 1 % (0-3); HEMATOCRIT 47.5 % (39.0-53.0); HEMOGLOBIN 16.3 g/dL (13.0-17.5); LYMPH # 2.1 x10^3/uL (1.0-4.8); LYMPH % 25 % (24-48); MEAN CORPUSCULAR HEMOGLOBIN 30 pg (25-35); MEAN CORPUSCULAR HGB CONC 34 g/dL (31-37); MEAN CORPUSCULAR VOLUME 88 fL (79-100); MONO # 0.8 x10^3/uL (0.0-1.1); MONO % 9 % (0-9); NEUT # 5.5 x10^3/uL (1.8-7.7); NEUT % 65 % (31-73); PLATELET COUNT 376 x10^3/uL (140-400); RED BLOOD COUNT 5.41 x10^6/uL (4.30-5.70); RED CELL DISTRIBUTION WIDTH 16.3 % (11.5-14.5); WHITE BLOOD COUNT 8.5 x10^3/uL (4.0-11.0)
[2020-11-13 12:54] LABS: CALCIUM 9.7 mg/dL (8.5-10.1); CREATININE 0.9 mg/dL (0.7-1.3); GFR 103.5; POTASSIUM 4.8 mmol/L (3.5-5.1)
[2020-11-13 12:57] LABS: PROTHROMBIN TIME PATIENT 12.2 SEC (11.7-14.0)
[2020-11-13 13:00] LABS: ALBUMIN 3.9 g/dL (3.4-5.0); ALBUMIN/GLOBULIN RATIO 0.9 (1.0-1.7); MAGNESIUM 1.9 mg/dL (1.8-2.4); TOTAL BILIRUBIN 0.5 mg/dL (0.2-1.0); TOTAL PROTEIN 8.3 g/dL (6.4-8.2)
--- NOTE | 2020-11-13 13:36 | RAD ---
Exam Date: 11/13/2020 12:[address] HEAD/BRAIN WO Indication: Reason: slurred speech / Spl. Instructions: / History: . TECHNIQUE: Head CT was performed without intravenous contrast. One or more of the following dose re duction techniques were utilized: *Automated exposure control (AEC) *Adjustment of mA and/or kV according to patient size *Use of iterative reconstruction technique *CT scan done according to ALARA, or ALARA/IMAGE GENTLY COMPARISON: October 28, 2020 FINDINGS: The ventricles and sulci are normal for the patient's stated age. There is no evidence of acute int racranial hemorrhage, extra-axial collection, mass effect, midline shift, or acute territorial infarc t. No lesion of the skull base or the calvarium is seen. The visualized paranasal sinuses, mastoid ai r cells and orbits are normal in appearance. IMPRESSION: No evidence for acute intracranial abnormality. Electronically signed by: Braulio Wu MD (11/13/2020 1:34 PM) [facility]
--- NOTE | 2020-11-13 14:30 | RAD ---
EXAMINATION: XR CHEST 1V CLINICAL HISTORY: Slurred speech EXAM DATE/TIME: 11/13/2020 1:15 PM COMPARISON: CT chest 10/29/2020, chest radiograph 10/28/2020 FINDINGS: Lines, Tubes, and Devices: None. Cardiomediastinal Silhouette: Within normal limits. Lungs and Pleura: No evidence of focal airspace consolidation or pleural effusion. Unchanged densitie s in the left mid-upper lung zone and right apex, compatible with pleural based calcifications and sp iculated nodular density, respectively, which is better appreciated on comparison CT. Pulmonary vascu lature unremarkable. Bones and Soft Tissues: No acute osseous abnormality. IMPRESSION: No evidence of acute cardiopulmonary abnormality or significant interval change. Unchanged chronic findings as described. Electronically signed by: Arpan Loera DO (11/13/2020 2:27 PM) [facility]
[2020-11-13 14:59] LABS: BILIRUBIN,URINE NEGATIVE (NEG); CLARITY,URINE CLEAR; COLOR,URINE YELLOW; NITRITE,URINE NEGATIVE (NEG); PH,URINE 7.5 (<5.0-8.0); PROTEIN,URINE NEGATIVE (NEG-TRACE)
[2020-11-13 15:05] LABS: BARBITURATES NEG (NEG); BENZODIAZEPINES NEG (NEG); CANNABINOIDS NEG (NEG); COCAINE NEG (NEG); METHADONE NEG (NEG); OPIATES NEG (NEG); PHENCYCLIDINE NEG (NEG)
[2020-11-13 15:07] LABS: AMPHETAMINE/METHAMPHETAMINE NEG (NEG)
[2020-11-13 15:19] LABS: BACTERIA,URINE 0 /HPF (0-FEW); RBC,URINE 0 /HPF (0-2); WBC,URINE 0 /HPF (0-4)
[2020-11-13 15:25] VITALS: BP 146/77
--- NOTE | 2020-11-13 15:27 | PHYS DOC ---
Past Medical History Past Medical History: Schizophrenia Past Surgical History: Other Additional Past Surgical Histo: hernia repait Smoking Status: Current Every Day Smoker Alcohol Use: None Drug Use: None General Adult EDM: Chief Complaint: ALLERGIC REACTION HPI: HPI: Patient is a 60 year old male with history of schizophrenia on antipsychotic medicines who presents to the ED today complaining of worsening slurred speech. Patient states he has had slurred speech for the last 1 month caused by psychiatric medicines. He states he was seen in the ED a month ago and had an extensive work-up which was negative for any acute findings. He presents today stating the slurred speech had improved and returned to 3 days ago. He states he saw the PCP 3 days ago who requested him to stop taking the psych medicine that is causing him slurred speech. Patient denies any headache, chest pain, shortness of breath, nausea, vomiting. Review of Systems: Review of Systems: Constitutional: Denies fever or chills. [] Eyes: Denies change in visual acuity. [] HENT: Denies nasal congestion or sore throat. [] Respiratory: Denies cough or shortness of breath. [] Cardiovascular: Denies chest pain or edema. [] GI: Denies abdominal pain, nausea, vomiting, bloody stools or diarrhea. [] : Denies dysuria. [] Musculoskeletal: Denies back pain or joint pain. [] Integument: Denies rash. [] Neurologic: Reports slurred speech. Denies headache, focal weakness or sensory changes. [] Psychiatric: Denies depression or anxiety. [] Heart Score: C/O Chest Pain: N/A Risk Factors: Risk Factors: DM, Current or recent (<one month) smoker, HTN, HLP, family history of CAD, obesity. Risk Scores: Score 0 - 3: 2.5% MACE over next 6 weeks - Discharge Home Score 4 - 6: 20.3% MACE over next 6 weeks - Admit for Clinical Observation Score 7 - 10: 72.7% MACE over next 6 weeks - Early Invasive Strategies Allergies: Allergies: Allergies Coded Allergies Type Severity Reaction Last Updated Verified No Known Allergies Allergy Unknown 10/28/20 Yes Physical Exam: PE: Constitutional: Well developed, well nourished, no acute distress, non-toxic appearance. [] HENT: Normocephalic, atraumatic, bilateral external ears normal, oropharynx moist, no oral exudates, nose normal. [] Eyes: PERRLA, EOMI, conjunctiva normal, no discharge. [] Neck: Normal range of motion, no tenderness, supple, no stridor. [] Cardiovascular:Heart rate regular rhythm, no murmur [] Lungs & Thorax: Bilateral breath sounds clear to auscultation [] Abdomen: Bowel sounds normal, soft, no tenderness, no masses, no pulsatile masses. [] Skin: Warm, dry, no erythema, no rash. [] Back: No tenderness, no CVA tenderness. [] Extremities: No tenderness, no cyanosis, no clubbing, ROM intact, no edema. [] Neurologic: Alert and oriented X 3, normal motor function, normal sensory function, no focal deficits noted. Cranial nerves II through XII intact. Slight slurred speech noted Psychologic: Wearing many wrist watches. Flat affect Current Patient Data: Labs: Laboratory Tests Test 11/13/20 12:30 11/13/20 14:49 White Blood Count 8.5 x10^3/uL (4.0-11.0) Red Blood Count 5.41 x10^6/uL (4.30-5.70) Hemoglobin 16.3 g/dL (13.0-17.5) Hematocrit 47.5 % (39.0-53.0) Mean Corpuscular Volume 88 fL (79-100) Mean Corpuscular Hemoglobin 30 pg (25-35) Mean Corpuscular Hemoglobin Concent 34 g/dL (31-37) Red Cell Distribution Width 16.3 % (11.5-14.5) H Platelet Count 376 x10^3/uL (140-400) Neutrophils (%) (Auto) 65 % (31-73) Lymphocytes (%) (Auto) 25 % (24-48) Monocytes (%) (Auto) 9 % (0-9) Eosinophils (%) (Auto) 1 % (0-3) Basophils (%) (Auto) 0 % (0-3) Neutrophils # (Auto) 5.5 x10^3/uL (1.8-7.7) Lymphocytes # (Auto) 2.1 x10^3/uL (1.0-4.8) Monocytes # (Auto) 0.8 x10^3/uL (0.0-1.1) Eosinophils # (Auto) 0.1 x10^3/uL (0.0-0.7) Basophils # (Auto) 0.0 x10^3/uL (0.0-0.2) Prothrombin Time 12.2 SEC (11.7-14.0) Prothrombin Time INR 0.9 (0.8-1.1) Activated Partial Thromboplast Time 31 SEC (24-38) Sodium Level 137 mmol/L (136-145) Potassium Level 4.8 mmol/L (3.5-5.1) Chloride Level 101 mmol/L (98-107) Carbon Dioxide Level 28 mmol/L (21-32) Anion Gap 8 (6-14) Blood Urea Nitrogen 8 mg/dL (8-26) Creatinine 0.9 mg/dL (0.7-1.3) Estimated GFR (Cockcroft-Gault) 103.5 BUN/Creatinine Ratio 9 (6-20) Glucose Level 89 mg/dL (70-99) Calcium Level 9.7 mg/dL (8.5-10.1) Magnesium Level 1.9 mg/dL (1.8-2.4) Total Bilirubin 0.5 mg/dL (0.2-1.0) Aspartate Amino Transferase (AST) 9 U/L (15-37) L Alanine Aminotransferase (ALT) 18 U/L (16-63) Alkaline Phosphatase 114 U/L (46-116) Troponin I Quantitative < 0.017 ng/mL (0.000-0.055) VN-Ceg-H-Type Natriuretic Peptide 60 pg/mL (0-124) Total Protein 8.3 g/dL (6.4-8.2) H Albumin 3.9 g/dL (3.4-5.0) Albumin/Globulin Ratio 0.9 (1.0-1.7) L Urine Collection Type Unknown Urine Color Yellow Urine Clarity Clear Urine pH 7.5 (<5.0-8.0) Urine Specific [place] 1.015 (1.000-1.030) Urine Protein Negative mg/dL (NEG-TRACE) Urine Glucose (UA) Negative mg/dL (NEG) Urine Ketones (Stick) Negative mg/dL (NEG) Urine Blood Negative (NEG) Urine Nitrite Negative (NEG) Urine Bilirubin Negative (NEG) Urine Urobilinogen Dipstick 1.0 mg/dL (0.2 mg/dL) Urine Leukocyte Esterase Negative (NEG) Urine RBC 0 /HPF (0-2) Urine WBC 0 /HPF (0-4) Urine Squamous Epithelial Cells Occ /LPF Urine Bacteria 0 /HPF (0-FEW) Urine Opiates Screen Neg (NEG) Urine Methadone Screen Neg (NEG) Urine Barbiturates Neg (NEG) Urine Phencyclidine Screen Neg (NEG) Urine Amphetamine/Methamphetamine Neg (NEG) Urine Benzodiazepines Screen Neg (NEG) Urine Cocaine Screen Neg (NEG) Urine Cannabinoids Screen Neg (NEG) Urine Ethyl Alcohol Neg (NEG) Laboratory Tests 11/13/20 12:30 Laboratory Tests 11/13/20 12:30 Vital Signs: Vital Signs Date Time Temp Pulse Resp B/P (MAP) Pulse Ox O2 Delivery O2 Flow Rate FiO2 11/13/20 12:20 98.9 68 16 173/77 (99) 100 Room Air 98.9 EKG: EK interpreted by Dr. Antoine sinus rhythm heart rate 65 no STEMI [] Radiology/Procedures: Radiology/Procedures: []PROCEDURE: CT HEAD WO CONTRAST Exam Date: 11/13/2020 12:[address] HEAD/BRAIN WO Indication: Reason: slurred speech / Spl. Instructions: / History: . TECHNIQUE: Head CT was performed without intravenous contrast. One or more of the following dose reduction techniques were utilized: *Automated exposure control (AEC) *Adjustment of mA and/or kV according to patient size *Use of iterative reconstruction technique *CT scan done according to ALARA, or ALARA/IMAGE GENTLY COMPARISON: October 28, 2020 FINDINGS: The ventricles and sulci are normal for the patient's stated age. There is no evidence of acute intracranial hemorrhage, extra-axial collection, mass effect, midline shift, or acute territorial infarct. No lesion of the skull base or the calvarium is seen. The visualized paranasal sinuses, mastoid air cells and orbits are normal in appearance. IMPRESSION: No evidence for acute intracranial abnormality. Electronically signed by: Papo Wu MD (11/13/2020 1:34 PM) [facility] DICTATED and SIGNED BY: PAPO WU MD DATE: 11/13/20 [id number] PROCEDURE: PORTABLE CHEST 1V EXAMINATION: XR CHEST 1V CLINICAL HISTORY: Slurred speech EXAM DATE/TIME: 11/13/2020 1:15 PM COMPARISON: CT chest 10/29/2020, chest radiograph 10/28/2020 FINDINGS: Lines, Tubes, and Devices: None. Cardiomediastinal Silhouette: Within normal limits. Lungs and Pleura: No evidence of focal airspace consolidation or pleural effusion. Unchanged densities in the left mid-upper lung zone and right apex, compatible with pleural based calcifications and spiculated nodular density, respectively, which is better appreciated on comparison CT. Pulmonary vasculature unremarkable. Bones and Soft Tissues: No acute osseous abnormality. IMPRESSION: No evidence of acute cardiopulmonary abnormality or significant interval change. Unchanged chronic findings as described. Electronically signed by: Melita Marie DO (11/13/2020 2:27 PM) [facility] DI[facility]ATED and SIGNED BY: MELITA MARIE DO DATE: 11/13/20 [id number] 0 Course & Med Decision Making: Course & Med Decision Making Pertinent Labs and Imaging studies reviewed. (See chart for details) This is a 60-year-old male patient presented to the ED today complaining of slurred speech for 1 month that he associates with taking some psychiatric medication which he stopped 3 days ago. Patient was seen in the ED a month ago for the same complaint. He had a huge work-up which was negative. Stroke scale today is [address] of the head is negative, labs are negative for any acute findings. Informed patient I will call and talk to him. Spoke to Dr. Rogers who is on-call for Dr. Conrad we agreed patient can be discharged and follow-up with PCP on Sunday Unfortunately patient left AMA, I did not have any chance to talk to him before he left. He is alert oriented x4 and able to make his own decisions. Dragon Disclaimer: iPosi Disclaimer: This electronic medical record was generated, in whole or in part, using a voice recognition dictation system. NIHSS Stroke Scale NIH Stroke Scale: NIH Stroke Scale Response (Comments) Value Level of Consciousness: 0 Alert/Responsive 0 LOC Questions: 0 Answers both correctly 0 LOC Commands: 0 Performs both tasks 0 Best Gaze: 0 Normal 0 Visual: 0 No visual loss 0 Facial Palsy: 0 Normal, symmetrical 0 Motor - Left Arm 0 No drift 0 Motor - Right Arm 1 Drifts but can hold 1 Motor - Left Leg 0 No drift 0 Motor: Right Leg 0 No drift 0 Limb Ataxia: 0 Absent 0 Sensory: 0 No loss 0 Best Language: 0 Normal 0 Dysathria: 1 Mild to moderate 1 Extinction and Inattention: 0 Normal 0 Total 2 Departure Departure Impression: Primary Impression: Slurred speech Disposition: 07 LEFT AGAINST MEDICAL ADVICE Condition: STABLE Referrals: YENNIFER CONRAD MD (PCP) MIRELLA BAR APRN Nov 13, 2020 15:27
--- NOTE | 2020-11-14 15:01 | EKG ---
[facility] [address] [place] [address] Test Date: 2020-11-13 Test Time: 12:49:30 Pat Name: MILO RICHARDS Department: Room: Gender: M Director Of Athletics: : 1960 Requested By: MIRELLA BAR Order Number: [id number] Reading MD: Measurements Intervals [place] Rate: 65 P: -40 NE: 134 QRS: 58 QRSD: 82 T: 32 QT: 394 QTc: 410 Interpretive Statements SINUS RHYTHM NORMAL ECG RI6.02 Compared to ECG 11/13/2020 12:47:44 No significant changes
== END 2020-11-13 16:01 | disposition left against medical advice (07) ==
LOC: ER 11:55
DX: R47.81 Slurred speech (principal); F20.9 Schizophrenia, unspecified; F17.200 Nicotine dependence, unspecified, uncomplicated
CPT/HCPCS: 36415; 70450; 71045; 80053; 80307; 81001; 83735; 83880; 84484; 85025; 85610; 85730; 93005; 99285-25

== ENCOUNTER 2020-12-21 13:45 | Emergency (ER) | payer OTHER ==
[~2020-12-21] VITALS: Ht 154.9 cm; Wt 50.3 kg
[2020-12-21 13:55] VITALS: BP 157/78
[2020-12-21 15:25] LABS: BILIRUBIN,URINE NEGATIVE (NEG); CLARITY,URINE CLEAR; COLOR,URINE YELLOW; NITRITE,URINE NEGATIVE (NEG); PH,URINE 6.5 (<5.0-8.0); PROTEIN,URINE NEGATIVE (NEG-TRACE)
[2020-12-21 15:38] LABS: INFLUENZA A PATIENT NEGATIVE (NEGATIVE); INFLUENZA B PATIENT NEGATIVE (NEGATIVE)
[2020-12-21 15:45] LABS: BACTERIA,URINE 0 /HPF (0-FEW); RBC,URINE 0 /HPF (0-2); WBC,URINE 0 /HPF (0-4)
--- NOTE | 2020-12-21 15:53 | PHYS DOC ---
Past Medical History Past Medical History: Schizophrenia Past Surgical History: Other Additional Past Surgical Histo: hernia repair Smoking Status: Current Every Day Smoker Alcohol Use: None Drug Use: None General Adult EDM: Chief Complaint: OTHER COMPLAINTS HPI: HPI: Patient is a 60 year old male with history of schizophrenia who presents with complaint of urinary incontinence and shortness of breath. Patient has been seen in the emergency department frequently with chief complaint of slurred speech, which she continues to express concern about today. He reports he has had a "brain scan," which came back "normal." Patient states that he has had this urinary incontinence for about a year, however has not sought evaluation either here in the department on his prior visits or elsewhere. When describing his shortness of breath, he reports associated headache and nonproductive cough that causes his "stomach muscles" to hurt. Patient denies fever, body aches, loss of taste or smell. Patient has no other complaints at this time. Review of Systems: Review of Systems: ROS negative except as mentioned in HPI. Heart Score: C/O Chest Pain: No Allergies: Allergies: Allergies Coded Allergies Type Severity Reaction Last Updated Verified No Known Allergies Allergy Unknown 10/28/20 Yes Physical Exam: PE: Constitutional: Well developed, well nourished, no acute distress, non-toxic appearance. [] HENT: Normocephalic, atraumatic, bilateral external ears normal, oropharynx mois t, no oral exudates, nose normal. [] Eyes: PERRLA, EOMI, conjunctiva normal, no discharge. [] Neck: Normal range of motion, no tenderness, supple, no stridor. [] Cardiovascular:Heart rate regular rhythm, no murmur [] Lungs & Thorax: Bilateral breath sounds clear to auscultation [] Abdomen: Bowel sounds normal, soft, no tenderness, no masses, no pulsatile masses. [] Skin: Warm, dry, no erythema, no rash. [] Back: No tenderness, no CVA tenderness. [] Extremities: No tenderness, no cyanosis, no clubbing, ROM intact, no edema. [] Neurologic: Alert and oriented X 3, normal motor function, normal sensory function, no focal deficits noted. [] Psychologic: Affect normal, judgement normal, mood normal. [] Current Patient Data: Labs: Laboratory Tests Test 12/21/20 15:00 12/21/20 15:05 Urine Collection Type Unknown Urine Color Yellow Urine Clarity Clear Urine pH 6.5 (<5.0-8.0) Urine Specific [place] 1.020 (1.000-1.030) Urine Protein Negative mg/dL (NEG-TRACE) Urine Glucose (UA) Negative mg/dL (NEG) Urine Ketones (Stick) Negative mg/dL (NEG) Urine Blood Negative (NEG) Urine Nitrite Negative (NEG) Urine Bilirubin Negative (NEG) Urine Urobilinogen Dipstick 1.0 mg/dL (0.2 mg/dL) Urine Leukocyte Esterase Negative (NEG) Urine RBC 0 /HPF (0-2) Urine WBC 0 /HPF (0-4) Urine Bacteria 0 /HPF (0-FEW) Urine Mucus Slight /LPF Influenza Type A Antigen Negative (NEGATIVE) Influenza Type B Antigen Negative (NEGATIVE) Vital Signs: Vital Signs Date Time Temp Pulse Resp B/P (MAP) Pulse Ox O2 Delivery O2 Flow Rate FiO2 12/21/20 13:55 98.6 90 18 157/78 (104) 100 Room Air 98.6 Course & Med Decision Making: Course & Med Decision Making Pertinent Labs and Imaging studies reviewed. (See chart for details) Discussed with patient that urinary incontinence evaluation will require follow- up with primary care or with urology. COVID swabs were obtained due to patient's new onset shortness of breath, headache and cough. Urinalysis did not show evidence of infection. Patient will be discharged home with urology referral and instruction to quarantine until he receives his Covid PCR swab results. Patient and his courseware developer at bedside understand and are agreeable to discharge plan. Dragon Disclaimer: Dragon Disclaimer: This electronic medical record was generated, in whole or in part, using a voice recognition dictation system. Departure Departure Impression: Primary Impression: Urinary incontinence Qualified Codes: R32 - Unspecified urinary incontinence Additional Impressions: Schizophrenia Qualified Codes: F20.9 - Schizophrenia, unspecified Cough Disposition: HOME / SELF CARE / HOMELESS Condition: STABLE Referrals: YENNIFER CONRAD MD (PCP) Patient Instructions: Urinary Incontinence-Brief Additional Instructions: The urine sample we obtained today did not show signs of infection. For further evaluation of urinary incontinence, you will need to visit a urologist. Information provided to you on this discharge paperwork. Dr. John Paul [facility] [place] [address] Your COVID swab results will not be available until tomorrow. Until that time, you should self quarantine to avoid spreading the virus, should you currently be infected. You will receive a phone call if the test comes back positive. Please return to the emergency department if your symptoms worsen or you develop new symptoms. VLAD STANLEY Dec 21, 2020 15:53
--- NOTE | 2020-12-22 17:31 | NUR ---
IP: Informed pt of negative covid test. Pt verbalized understanding.
== END 2020-12-21 16:02 | disposition home or self-care (01) ==
LOC: ER 13:45
DX: R32 Unspecified urinary incontinence (principal); Z20.822 Contact with and (suspected) exposure to COVID-19; F20.9 Schizophrenia, unspecified; R05.9 Cough, unspecified; R06.02 Shortness of breath; F17.200 Nicotine dependence, unspecified, uncomplicated
CPT/HCPCS: 81001; 87804; 99283; U0003; U0005